=== PATIENT | male | born 1995 | race Caucasian/White ===

== ENCOUNTER 2023-10-20 03:15 | Emergency (ER) | payer BC ==
[2023-10-20 03:21] VITALS: BP 136/75; PULSE 78; RESP 16; TEMP 97.3; BMI 29.6
[2023-10-20] MEDS: KETOROLAC TROMETHAMINE 30 MG/1 ML VIAL IVPUSH ONE (03:40)
[2023-10-20] MEDS ORDERED: KETOROLAC TROMETHAMINE 30 MG/1 ML VIAL ONE (03:41)
[2023-10-20] MEDS: KETOROLAC TROMETHAMINE 30 MG/1 ML VIAL IM ONE (03:45)
== END 2023-10-20 05:02 | disposition home or self-care (01) ==
LOC: FER 03:15
PROC: 3E0233Z Introduction of Anti-inflammatory into Muscle, Percutaneous Approach (ICD-10-PCS; principal; 2023-10-20)
DX: R07.81 Pleurodynia (principal); M54.50 Low back pain, unspecified; W01.198A Fall on same level from slipping, tripping and stumbling with subsequent striking against other object, initial encounter
CPT/HCPCS: 71046-TC-FY; 71101-TC-RT-FY; 99284-25